=== PATIENT | male | born 1960 | race Caucasian/White ===

== ENCOUNTER 2017-09-29 06:04 | Emergency (ER) | END 2017-09-29 12:30 | disposition home or self-care (01) ==

== ENCOUNTER 2017-11-23 16:41 | Emergency (ER) | END 2017-11-23 21:14 | disposition home or self-care (01) ==

== ENCOUNTER 2018-02-06 08:44 | Emergency (ER) | END 2018-02-06 10:23 | disposition home or self-care (01) ==

== ENCOUNTER 2018-02-07 00:25 | Emergency (ER) | END 2018-02-07 03:50 | disposition home or self-care (01) ==

== ENCOUNTER 2018-06-21 03:32 | Emergency (ER) | END 2018-06-21 04:15 | disposition home or self-care (01) ==

== ENCOUNTER 2018-09-18 17:30 | Emergency (ER) | END 2018-09-18 20:13 | disposition home or self-care (01) ==

== ENCOUNTER 2018-12-25 01:56 | Emergency (ER) | payer OTHER ==
[~2018-12-25] VITALS: Ht 175.3 cm; Wt 78.7 kg
[~2018-12-25 01:56] MED LIST: ACET500C5 PO; ALBU8.5H8 INH; ALPR0.5T PO; BENZ-6 PO; FAMO-96 PO; GUAI5SYR2 PO; IBUP800T48 PO; LEVO500T48 PO; MAG-19 PO; NAPR-985 PO; OMEP20CA16 PO; OMEP20CA9 PO; OMEP40CA6 PO; PRED20TA PO
[2018-12-25 02:01] VITALS: Ht 175.3 cm; Wt 78.7 kg
--- NOTE | 2018-12-25 02:54 | ERD ---
ER Documentation Chief Complaint Chief Complaint ST X 1 DAY HPI 58-year-old male, presents the emergency department, complaining of sore throat for 1 day. No fever, no chills, no shortness of breath. ROS All systems reviewed and are negative except as per history of present illness. Medications Home Meds Active Scripts Prednisolone* (Prelone*) 15 Mg/5 Ml Solution, 10 ML PO DAILY for 5 Days, #1 BOTTLE Prov:MARTIN TRUONG MD 12/25/18 Omeprazole* (Omeprazole*) 40 Mg Capsule., 40 MG PO DAILY, #30 CAP Prov:MARTIN TRUONG MD 12/25/18 Ranitidine Hcl* (Zantac*) 150 Mg Tablet, 150 MG PO BID PRN for EPIGASTRIC PAIN, #30 TAB Prov:MARTIN TRUONG MD 12/25/18 Naproxen* (Naprosyn*) 500 Mg Tablet, 500 MG PO BID PRN for PAIN AND/OR INFLAMMATION, #30 TAB Prov:ALVA EMANUEL NP 09/18/18 Magaldrate/Simethicone* (Mylanta*) 355 Ml Susp, 30 ML PO QID PRN for GASTROINTESTINAL UPSET, #1 BOTTLE Prov:EDITH MEMBRENO NP 06/21/18 Omeprazole* (Omeprazole*) 20 Mg Capsule., 20 MG PO DAILY, #30 Prov:EDITH MEMBRENO NP 06/21/18 Acetaminophen* (Tylophen*) 500 Mg Capsule, 1 CAP PO Q6H PRN for PAIN AND OR ELEVATED TEMP, #20 CAP Prov:PASILABANCLAUDINEAR F 02/07/18 Famotidine* (Pepcid*) 20 Mg Tablet, 20 MG PO DAILY for 30 Days, TAB Prov:PASILABANCLAUDINEAR F 02/07/18 Ibuprofen* (Motrin*) 800 Mg Tab, 800 MG PO Q6H PRN for PAIN AND OR ELEVATED TEMP, #20 TAB Prov:PASILABANCLAUDINEAR F 02/07/18 Guaifenesin-Dextromethorphan* (Robitussin* DM) 100MG/10MG/5ML Syrup, 10 ML PO Q4H PRN for COUGH, #120 ML Prov:PASILABANCLAUDINEAR F 02/07/18 Prednisone* (Prednisone*) 20 Mg Tab, 60 MG PO DAILY for 5 Days, TAB Prov:ABIGAIL DE LA TORRE F 02/07/18 Albuterol Sulfate* (Proair HFA*) 8.5 Gm Hfa.aer.ad, 2 PUFF INH Q4H PRN for WHEEZING AND SOB, #1 INHALER Prov:ABIGAIL DE LA TORRE 02/07/18 Levofloxacin* (Levaquin*) 500 Mg Tablet, 500 MG PO DAILY for 7 Days, TAB Prov:ABIGAIL DE LA TORRE 02/07/18 Naproxen* (Naprosyn*) 500 Mg Tablet, 500 MG PO BID PRN for PAIN AND/OR INFLAMMATION, #30 TAB Prov:ISAMAR CASTRO PA-C 02/06/18 Benzonatate* (Tessalon Perle*) 100 Mg Capsule, 100 MG PO Q8H PRN for COUGH, #20 CAP Prov:RODRÍGUEZ HARPER PA-C 11/23/17 Omeprazole* (Omeprazole*) 40 Mg Capsule., 40 MG PO DAILY, #10 CAP Prov:DENNY BARBER. 09/29/17 Magaldrate/Simethicone* (Mylanta*) 355 Ml Susp, 30 ML PO QID PRN for GASTROINTESTINAL UPSET, #1 BOTTLE Prov:DENNY BARBER. 09/29/17 Alprazolam* (Xanax*) 0.5 Mg Tab, 0.5 MG PO Q8H PRN for ANXIETY, #12 TAB Prov:BERENICE HAJI MD 12/28/15 Magaldrate/Simethicone* (Mylanta*) 355 Ml Susp, 30 ML PO QID PRN for GASTR OINTESTINAL UPSET, #1 BOTTLE Prov:EDITH MEMBRENO NP 12/28/15 Ibuprofen* (Motrin*) 800 Mg Tab, 800 MG PO Q6H PRN for PAIN AND OR ELEVATED TEMP, #30 TAB Prov:ANDREAS GAMBOA DO 10/23/15 Reported Medications Omeprazole* (Prilosec*) Unknown Strength Capsule., PO BID, CAP 12/28/15 Allergies Allergies: Coded Allergies: Penicillins (Verified Allergy, Unknown, RASH, 02/06/18) PMhx/Soc History of Surgery: Yes (toe, knee, foot surgeries) Anesthesia Reaction: No Hx Neurological Disorder: No Hx Respiratory Disorders: No Hx Cardiac Disorders: Yes (HIGH CHOLESTEROL) Hx Psychiatric Problems: No Hx Miscellaneous Medical Probl: Yes (prediabetes and HLD) Hx Alcohol Use: Yes Hx Substance Use: No Hx Tobacco Use: No Physical Exam Vitals Vital Signs Date Temp Pulse Resp B/P (MAP) Pulse Ox O2 O2 Flow FiO2 Time Delivery Rate 12/25/18 98.1 70 18 167/95 100 Room Air 03:38 (119) 12/25/18 97.8 61 16 164/99 97 02:01 (120) Physical Exam Patient alert, oriented, vital signs stable. HEENT: Normocephalic, atraumatic. EYES: PERRLA, EOMI, Sclera and conjunctiva appear normal. EARS: Canals clear, tympanic membranes WNL. THROAT: Erythematous oropharynx. NECK: Supple, No lymphadenopathy. Full ROM without pain or tenderness. HEART: RRR, no rubs, murmurs, clicks or gallops. LUNGS: Clear to auscultation. ABDOMEN: Soft, non-tender without masses or hepatosplenomegaly. EXTREMITIES: No edema bilaterally. BACK: Full ROM, no deformity, normal back exam NEURO: Cranial nerves grossly intact, no motor or sensory deficit SKIN: No rashes, no petechia. Results 24 hrs Current Medications Medications Dose Sig/Hodan Start Time Status Last (Trade) Ordered Route PRN Stop Time Admin Dose Reason Admin 320 mg ONCE ONCE 12/25/18 DC 12/25/18 Acetaminophen PO 04:00 03:37 (Tylenol 12/25/18 04:00 Liquid (Ped)) Procedures/MDM Differential diagnosis include but not limited to: Tonsillar/pharyngeal infection bacterial/viral/fungal, parotitis, allergies, GERD. Less likely peritonsillar abscess, retropharyngeal abscess. No signs of upper respiratory obstruction Physical examination and clinical presentation consistent most likely with GERD. During the ED course the patient remained stable. Clinical impression discussed with the patient who agrees with management. The patient is stable to be treated outpatient and will be discharged home; Some side effects of prescribed medications (headache, rash, nausea, vomiting, diarrhea, drowsiness, habituation, bleeding, hypertension, interactions with other medications) were reviewed. The patient was instructed to follow up with the primary care provider in the next 48h. If symptoms persist, worsen or new symptoms develop, then patient should return to the ED immediately. Disclaimer: Inadvertent spelling and grammatical errors are likely due to EHR/dictation software use and do not reflect on the overall quality of patient care. Also, please note that the electronic time recorded on this note does not necessarily reflect the actual time of the patient encounter. Departure Diagnosis: Primary Impression: Sore throat Additional Impression: GERD (gastroesophageal reflux disease) Condition: Stable Patient Instructions: Self-Care for Sore Throats Additional Instructions: Thank you very much for allowing us to participate in your care. Your health and safety is our top priority at [facility]. Call your primary care doctor TOMORROW for an appointment during the next 2-4 days and bring all the information and medications prescribed. Have prescriptions filled and follow precisely the directions on the label. If the symptoms get worse and your provider is unavailable, return to the Emergency Department immediately. MARTIN TRUONG MD Dec 25, 2018 02:54
[2018-12-25] MEDS ORDERED: OMEP40CA6 PO (03:10)
[2018-12-25] MEDS ORDERED: PREL60L PO (03:10)
[2018-12-25] MEDS ORDERED: RANI150T35 PO (03:10)
[2018-12-25 03:38] VITALS: BP 167/95; PULSE 70; RESP 18
[2018-12-25] MEDS ORDERED: ACETAMINOPHEN 160 MG/5ML CUP PO ONE (04:00)
== END 2018-12-25 03:48 | disposition home or self-care (01) ==
LOC: FTE 01:56
DX: J02.9 Acute pharyngitis, unspecified (principal); K21.9 Gastro-esophageal reflux disease without esophagitis
CPT/HCPCS: Z7502; Z7610; 99283